=== PATIENT | male | born 1955 ===

== ENCOUNTER 2023-06-15 05:50 | Day surgery (SDC) | payer OTHER ==
[2023-06-15] MEDS ORDERED: OXYC1TAB9 PO (10:14)
== END 2023-06-15 14:00 | disposition home or self-care (01) ==
LOC: CIR.AMB 05:50 → EDBD 11:45 → CIR.AMB 14:00
PROVIDERS: ATTEND Surgery
DX: K64.2 Third degree hemorrhoids (principal); K64.4 Residual hemorrhoidal skin tags; K64.8 Other hemorrhoids; K62.5 Hemorrhage of anus and rectum; K62.89 Other specified diseases of anus and rectum; R19.4 Change in bowel habit; Z20.822 Contact with and (suspected) exposure to COVID-19; K63.5 Polyp of colon; I10 Essential (primary) hypertension